=== PATIENT | male | born 1995 | race Hispanic/Latino ===

== ENCOUNTER 2016-09-01 16:45 | Emergency (ER) | payer OTHER ==
[~2016-09-01] VITALS: Ht 180.3 cm; Wt 95.0 kg
[2016-09-01 17:04] VITALS: BP 133/85; PULSE 88; O2SAT 100
--- NOTE | 2016-09-01 18:18 | ED.REPORT ---
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 Associated symptoms include tingling in his left arm radiating to his left shoulder and SOB. He describes the pain as numb and then a sharp pain. Denies neck pain or stiffness. His mother denies family history of aortic dissection. Nursing Notes Stated Complaint: CHEST PAIN, LEFT ARM PAIN Chief Complaint: Extremity Trauma Nursing Notes Reviewed: Yes Allergies: Coded Allergies: amoxicillin (Verified Allergy, Severe, rash, 09/01/16) General Time Seen by MD: 18:06 Chief Complaint Chest pain Hx Obtained From: Patient Arrived By: Walk-in Sudden in Onset?: No Onset Occurred: 5 - 8 hours ago Context of Onset: Work-related Symptom Duration: Since onset Location: : Chest left: Shoulder left Quality: Painful Radiation: : Shoulder left Severity: Current: No pain currently Severity: Maximum: Moderate Recent Healthcare: No recent doctor visit, No recent hospitalization Similar Sx Previous: No Risk Factors )( CAD Risk Stratification No Amphetamine, No Cocaine, No Diabetes mellitus, No Family history, No Hyperlipidemia, No Hypertension, No Known CAD, No Smoking Risk factors reviewed Past Medical History Past Medical History denies Past Surgical History denies Smoking History Unknown if Ever Smoker Ambulatory Status Independent Review of Systems Respiratory: Reports: Shortness of breath Cardiovascular: Reports: Chest pain Musculoskeletal: Reports: Extremity pain (Left arm), Denies: Neck pain Complete sys rev & neg: except as marked. Physical Exam Initial Vital Signs Vital Signs (First) Date Time Temp Pulse Resp B/P Pulse Ox O2 Delivery O2 Flow Rate FiO2 09/01/16 17:04 37.1 88 133/85 100 Room Air 09/01/16 19:48 16 Initial VS: Reviewed Head / Eyes: Atraumatic, Normocephalic, PERRL ENT: Mucous membranes moist, Conjunctiva normal, No scleral icterus Abdomen / GI: Soft, Non-tender, No guarding, No rebound, No distention Extremities: Vascular intact, Neuro intact, No swelling, No tenderness Skin: Warm, Dry, No cyanosis Neurologic: Alert, Oriented, Nonfocal Psychiatric: Mood/affect normal, Behavior normal, Normal thought content General/Constitutional: Awake, Alert, Well appearing Respiratory / Chest: Atraumatic, Breath sounds NL, Breath sounds = bilat, No respiratory distress Mild reproducible chest wall tenderness. Cardiovascular: Heart rate NL, Regular rhythm, Heart sounds NL, No murmurs, Peripheral circulation NL, Pulses = bilaterally, No gross BP differential Bounding pulses Neck: Supple, Full range of motion, No swelling Interpretation & Diagnostics Lab Results Interpretation Result Diagram: 09/01/16193409/01/161934 Test 09/01/16 19:35 White Blood Count 10.9th/mm3 (3.8-10.1) Red Blood Count 5.74mil/mm3 (4.40-5.80) Hemoglobin 15.7g/dL (13.8-17.2) Hematocrit 45.7% (41.0-50.0) Mean Corpuscular Volume 79.6fL (81-100) Mean Corpuscular Hemoglobin 27.4pg (27.0-35.0) Mean Corpuscular Hemoglobin Concent 34.4% (32.0-37.0) Red Cell Distribution Width 13.2% (12.3-15.4) Platelet Count 193bil/L (150-400) Neutrophils (%) (Auto) 65.8% (40-74) Lymphocytes (%) (Auto) 25.0% (14-46) Monocytes (%) (Auto) 7.2% (4-12) Eosinophils (%) (Auto) 1.3% (0-5) Basophils (%) (Auto) 0.5% (0-3) D-Dimer < 0.5mg/L (<0.50) Sodium Level 139mEq/L (134-144) Potassium Level 4.2mEq/L (3.5-5.2) Chloride Level 102mEq/L (97-108) Carbon Dioxide Level 24mmol/L (18-29) Blood Urea Nitrogen 21mg/dL (6-20) Creatinine 1.04mg/dL (0.76-1.27) Estimat Glomerular Filtration Rate 95mL/min (>59) Glucose Level 103mg/dL (60-99) Calcium Level 9.7mg/dL (8.5-10.1) Total Bilirubin 0.2mg/dL (0.0-1.2) Aspartate Amino Transf (AST/SGOT) 27U/L (0-50) Alanine Aminotransferase (ALT/SGPT) 29U/L (0-44) Alkaline Phosphatase 78U/L (25-150) Troponin T < 0.010ug/L (0.0-0.011) Total Protein 7.9g/dL (6.4-8.4) Albumin 4.6g/dL (3.4-5.0) Hold Schneider Top Tube Received (Received) ECG Interpretation Time: 17:15 Interpreted by: ED physician Normal ECG Interpretation: Normal ECG w/ rate of... (86), Normal sinus rhythm X-Ray Chest Interpretation Chest Xray Interpretation: IMPRESSION: No acute disease Dictated by: Dylan Sage M.D. on 09/01/2016 at 20:36 View: AP & lat Interpretation / Wet Read by: Interpret - Radiologist Re-Eval/Medical Decision Med Decision/Clinical Course Pt declines repeat troponin. Healthy 20-year-old male developed some sharp left arm pain that radiated to his chest. This happened while he was using his left arm at work. Pain was reproducible on examination. Pulmonary emboli, myocardial infarction and aortic dissection all seem highly unlikely. His exam showed reproducible pain. Serial troponins were negative. X-ray was normal. He is treated with Toradol and dose of Xanax. I gave him Xanax he was highly anxious. At discharge is asymptomatic. Life-threatening or limb threatening illness and been ruled out. Recommend outpatient follow-up. Re-Evaluation/Progress : Time of Eval: 21:22 Patient Status: Condition improved Re-Evaluation/Progress Note: Pt feels much better. Pt declines repeat troponin. Discussed plan for discharge. Pt understands and agrees. Counseled Regarding: Diagnosis, Lab results, Need for follow-up, When/why to return to ED Discharge & Departure Shift Change Sign-Out Response to Therapy: Improved Primary Impression: Atypical chest pain Additional Impression: Chest wall pain Disposition: Home Discharge Condition All VS Reviewed: Yes Condition: Improved Patient Instructions: Chest Pain (ED), Generalized Anxiety Disorder (ED) Additional Instructions: The chest x-ray was normal. The EKG was normal. The heart blood test is normal. A second heart blood test is recommended. The blood clot screening blood tests is normal. Your blood pressure symmetric in both arms. There does not appear to be an emergent cause of your pain. I do recommend close outpatient follow-up. Take Tylenol or Motrin as directed for pain. Follow up with your primary care physician in the next week. Return to the ER if you develop any new or worsening symptoms. Call Saturday to set this up. Referrals: [facility] (PCP) [facility] Attestation Portions of this note were transcribed by Mariann Jensen. I, Dr. Mckenna personally performed the history, physical exam and medical decision-making; I reviewed and confirmed the accuracy of the information in the transcribed note. Signed by : Dale Hair, 09/01/2016 and 2125. copies to: [facility] Raymond Mckenna DO Sep 01, 2016 18:18 MARIANN JESNEN Sep 01, 2016 19:17
[2016-09-01] MEDS ORDERED: ALPRAZolam 0.5 mg Tablet PO ONE (19:20)
[2016-09-01 19:48] VITALS: BP_SYST 113; BP_SYST 120; BP_DIAS 71; BP_DIAS 74; PULSE 83; RESP 16; O2SAT 97
[2016-09-01 19:48] LABS: BASOPHILS % (AUTO) 0.5 % (0-3); EOSINOPHILS % (AUTO) 1.3 % (0-5); MONOCYTES % (AUTO) 7.2 % (4-12); Mean Corpuscular Hemoglobin 27.4 pg (27.0-35.0); Mean Corpuscular Volume 79.6 fL (81-100); NEUTROPHILS % (AUTO) 65.8 % (40-74); Platelet Count 193 bil/L (150-400)
[2016-09-01 20:22] LABS: TROPONIN T < 0.010 ug/L (0.0-0.011)
--- NOTE | 2016-09-01 20:38 | DRSVH ---
PROCEDURE: X-RAY CHEST, TWO VIEWS ([id number]) INDICATIONS: chest pain TECHNIQUE: 2 views of the chest were acquired. COMPARISON: [facility], , CHEST 2VW , 04/03/2006, 12:26. FINDINGS: Surgical changes and devices: None. Lungs and pleura: No pleural effusions or pneumothorax. Lungs are clear. Mediastinum: Mediastinal contours are normal. Heart size is normal. Bones and chest wall: No suspicious bony abnormalities. Soft tissues appear unremarkable. IMPRESSION: No acute disease Dictated by: Dylan Sage M.D. on 09/01/2016 at 20:36 Approved by: Dylan Sage M.D. on 09/01/2016 at 20:36
[2016-09-01 21:30] VITALS: BP 118/79; PULSE 78; RESP 19; O2SAT 100
== END 2016-09-01 21:31 | disposition home or self-care (01) ==
LOC: SED 16:45
DX: R07.89 Other chest pain (principal); Z88.1 Allergy status to other antibiotic agents